=== PATIENT | female | born 1975 ===

== ENCOUNTER 2023-08-24 09:17 | Inpatient (IN) | payer OTHER ==
[~2023-08-24] VITALS: Ht 160 cm; Wt 72.6 kg
[2023-08-24 14:12] LABS: URINE APPEARANCE Cloudy; URINE BILIRRUBIN Negative (NEGATIVE); URINE BLOOD Negative; URINE COLOR Yellow; URINE GLUCOSE Negative (NEGATIVE); URINE LEUKOCYTE Trace; URINE NITRATE Negative; URINE PROTEIN Negative (NEGATIVE); URINE UROBILINOGEN 0.2 E.U./dl
[2023-08-24 14:14] LABS: URINE BACTERIA 5144.3 uL (0.0-1933); URINE EPITHELIAL CELLS 101.2 uL (0.0-38.8); URINE RBC 7.9 uL (0.0-20.8); URINE WBC 54.4 uL (0.0-23.2)
[2023-08-25 07:44] LABS: HEMATOCRIT 34.3 % (36.0-45.00); HEMOGLOBIN 11.6 g/dL (12.0-15.00); MEAN CELL VOLUME 85.9 fL (80.00-100.00); MEAN CORPUSCULAR HEMOGLOBIN 29.2 pg (27.00-32.0); PLATELET COUNT 206 K/uL (150-450); RED BLOOD COUNT 3.99 M/uL (4.00-6.00); RED CELL DISTRIBUTION WIDTH 14.7 % (11.5-14.5)
== END 2023-08-26 17:46 | disposition home or self-care (01) | DRG 743 ==
LOC: SURH 09:17 → O/R 15:49 → OB/GYN 15:49 → SURH 17:15 → OB/GYN 22:34
PROVIDERS: ADMIT Obstetrics & Gynecology Obstetrics; ATTEND Obstetrics & Gynecology Obstetrics
PROC: 0UT90ZZ Resection of Uterus, Open Approach (ICD-10-PCS; principal; 2023-08-24 17:15)
DX: D25.1 Intramural leiomyoma of uterus (principal); N80.03 Adenomyosis of the uterus; Z20.822 Contact with and (suspected) exposure to COVID-19